=== PATIENT | male | born 1975 | race African-American/Black ===

== ENCOUNTER 2018-10-31 22:06 | Emergency (ER) | payer OTHER ==
[~2018-10-31] VITALS: Ht 185.4 cm; Wt 117.9 kg
--- NOTE | 2018-11-01 00:40 | PHYS DOC ---
Past Medical History Past Medical History: Asthma, CVA, Hypertension Past Surgical History: No Surgical History Alcohol Use: None Drug Use: Marijuana Adult General Chief Complaint Chief Complaint: LOWER EXTREMITY EDEMA HPI HPI Patient is a 43 year old male with one prior stroke and HTN who presents with one-day of increased pain and swelling of the right knee and distal thigh. He states this occurred abruptly without any trauma or injury to the area. He also reports a palpable mass in his posterior knee that is very tender to palpation. he states the pain is a 10/10 in severity. He denies any fever, nausea or vom iting. He admits to shortness of breath, night sweats, polydipsia, palpitations, and lightheadedness that have increased in severity and frequency in the past year. He is concerned there is something wrong with his heart and would like testing done for this. Review of Systems Review of Systems Constitutional: Denies fever or chills Eyes: Denies redness or eye pain HENT: Denies nasal congestion or sore throat Respiratory: Reports shortness of breath. Cardiovascular: Denies chest pain but reports palpitations and light headedness. GI: Denies abdominal pain, nausea, or vomiting : Denies dysuria or hematuria Musculoskeletal: Right knee and distal thigh pain and swelling. Integument: Denies rash or skin lesions Neurologic: Denies headache, focal weakness or sensory changes Complete systems were reviewed and found to be within normal limits, except as documented in this note. Current Medications Current Medications Current Medications Medications (Trade) Dose Ordered Sig/Marcus Start Time Stop Time Status Last Admin Dose Admin Acetaminophen/ Hydrocodone Bitart (Lortab 5/325) 1 tab 1X ONCE 11/01/18 02:00 11/01/18 02:03 DC 11/01/18 02:11 1 TAB Dexamethasone (Decadron) 10 mg 1X ONCE 11/01/18 02:00 11/01/18 02:03 DC 11/01/18 02:11 10 MG Ketorolac Tromethamine (Toradol 15mg Vial) 15 mg 1X ONCE 11/01/18 00:45 11/01/18 00:46 DC 11/01/18 01:06 15 MG Allergies Allergies Allergies Coded Allergies Type Severity Reaction Last Updated Verified No Known Drug Allergies 10/31/18 No Physical Exam Physical Exam Constitutional: Anxious 43 yo male in moderate distress. Eyes: PERRL, EOMI, conjunctiva normal, no discharge Neck: Normal range of motion, no tenderness, supple Cardiovascular: Heart rate normal, regular rhythm Lungs & Thorax: Bilateral breath sounds clear to auscultation, no wheezing Abdomen: Soft, no tenderness Skin: Warm, dry, no erythema, no rash Extremities: Right knee and distal thigh tenderness and swelling. posterior right knee fluid collection that is TTP. Neurologic: Alert and oriented X 3, normal motor function, normal sensory function, no focal deficits noted Psychologic: Affect normal, judgement normal, mood normal Current Patient Data Vital Signs Vital Signs Date Time Temp Pulse Resp B/P (MAP) Pulse Ox O2 Delivery O2 Flow Rate FiO2 11/01/18 01:28 69 16 159/79 (105) 97 Room Air 10/31/18 23:01 98.4 98.4 Lab Values Laboratory Tests Test 11/01/18 01:02 11/01/18 01:12 White Blood Count 11.6 x10^3/uL (4.0-11.0) H Red Blood Count 3.67 x10^6/uL (4.30-5.70) L Hemoglobin 11.9 g/dL (13.0-17.5) L Hematocrit 34.0 % (39.0-53.0) L Mean Corpuscular Volume 93 fL (79-100) Mean Corpuscular Hemoglobin 32 pg (25-35) Mean Corpuscular Hemoglobin Concent 35 g/dL (31-37) Red Cell Distribution Width 12.5 % (11.5-14.5) Platelet Count 219 x10^3/uL (140-400) Neutrophils (%) (Auto) 66 % (31-73) Lymphocytes (%) (Auto) 25 % (24-48) Monocytes (%) (Auto) 7 % (0-9) Eosinophils (%) (Auto) 1 % (0-3) Basophils (%) (Auto) 0 % (0-3) Neutrophils # (Auto) 7.7 x10^3uL (1.8-7.7) Lymphocytes # (Auto) 2.9 x10^3/uL (1.0-4.8) Monocytes # (Auto) 0.8 x10^3/uL (0.0-1.1) Eosinophils # (Auto) 0.1 x10^3/uL (0.0-0.7) Basophils # (Auto) 0.1 x10^3/uL (0.0-0.2) Prothrombin Time 14.3 SEC (11.7-14.0) H Prothrombin Time INR 1.1 (0.8-1.1) PTT 32 SEC (24-38) Sodium Level 141 mmol/L (136-145) Potassium Level 3.5 mmol/L (3.5-5.1) Chloride Level 105 mmol/L (98-107) Carbon Dioxide Level 30 mmol/L (21-32) Anion Gap 6 (6-14) Blood Urea Nitrogen 9 mg/dL (8-26) Creatinine 0.9 mg/dL (0.7-1.3) Estimated GFR (Cockcroft-Gault) 111.4 BUN/Creatinine Ratio 10 (6-20) Glucose Level 99 mg/dL (70-99) Calcium Level 9.3 mg/dL (8.5-10.1) Magnesium Level 2.0 mg/dL (1.8-2.4) Total Bilirubin 0.5 mg/dL (0.2-1.0) Aspartate Amino Transferase (AST) 20 U/L (15-37) Alanine Aminotransferase (ALT) 21 U/L (16-63) Alkaline Phosphatase 53 U/L (46-116) Creatine Kinase 119 U/L (39-308) Creatine Kinase MB (Mass) 0.8 ng/mL (0.0-3.6) Creatine Kinase MB Relative Index 0.7 % (0-4) Troponin I Quantitative < 0.017 ng/mL (0.000-0.055) LV-Jgx-A-Type Natriuretic Peptide 10 pg/mL (0-124) Total Protein 7.9 g/dL (6.4-8.2) Albumin 4.1 g/dL (3.4-5.0) Albumin/Globulin Ratio 1.1 (1.0-1.7) Lipase 192 U/L (73-393) Urine Collection Type Unknown Urine Color Yellow Urine Clarity Cloudy Urine pH 5.0 Urine Specific [place] 1.015 Urine Protein Negative mg/dL (NEG-TRACE) Urine Glucose (UA) Negative mg/dL (NEG) Urine Ketones (Stick) Negative mg/dL (NEG) Urine Blood Negative (NEG) Urine Nitrite Negative (NEG) Urine Bilirubin Negative (NEG) Urine Urobilinogen Dipstick 0.2 mg/dL (0.2 mg/dL) Urine Leukocyte Esterase Negative (NEG) Urine RBC 0 /HPF (0-2) Urine WBC Occ /HPF (0-4) Urine Squamous Epithelial Cells Few /LPF Urine Bacteria 0 /HPF (0-FEW) Urine Mucus Slight /LPF Laboratory Tests 11/01/18 01:02 Laboratory Tests 11/01/18 01:02 EKG EKG 11/01/2018 @00:51 shows NSR at [address] elevations. [] Radiology/Procedures Radiology/Procedures PROCEDURE: VENOUS LOWER EXTREMITY RIGHT RIGHT LOWER EXTREMITY ULTRASOUND WITH DOPPLER 10/31/2018 11:48 PM Clinical Information: Right knee swelling for 3 days with no known injury. Comparison: None. Technique: Multiple grayscale, color Doppler, and spectral Doppler sonographic images of the lower extremity venous structures were obtained. Findings: The right common femoral, femoral, and popliteal veins exhibit normal compression, respiratory phasicity, and augmentation. No intraluminal thrombi are identified. Color Doppler flow is demonstrated in the right posterior tibial veins. Greater saphenous vein is patent. There is a knee joint effusion. Impression: 1. No evidence of deep venous thrombosis. 2. Moderate knee joint effusion. Electronically signed by: Kelvin Randle MD (11/01/2018 1:02 AM) [facility] DICTATED and SIGNED BY: KELVIN RANDLE MD DATE: 11/01/18101 Course & Med Decision Making Course & Med Decision Making Patient is a 43-year-old male who presented right knee pain and swelling for 1 day. The patient is complaining of palpitations lightheadedness and several othe r systemic complaints. Ultrasound of the right knee demonstrated no deep venous thromboses, but did show an effusion. ECG was obtained and demonstrated normal sinus rhythm and no ST elevations. Patient was administered ketorolac for pain. Patient's right knee wrapped with margarita bandage for compression and given crutches. Patient stable for discharge with outpatient follow-up with PCP. Discussed findings and plan with patient and family, who acknowledge understanding and agreement. Dragon Disclaimer Dragon Disclaimer This electronic medical record was generated, in whole or in part, using a voice recognition dictation system. Departure Departure Impression: Primary Impression: Knee effusion, right Disposition: 01 HOME, SELF-CARE Condition: STABLE Referrals: NO PCP (PCP) CHRIS MASCORRO MD Patient Instructions: Crutch Use, [id number], Knee Effusion, Gmbe-hp-[id number] Scripts Hydrocodone/Apap 5-325 (NORCO 5-325 TABLET) 1 Each Tablet 0.5 TAB PO PRN Q6HRS PRN for PAIN, #6 TAB 0 Refills Prov: LUCAS MARTINEZ DO 11/01/18 Prednisone (PREDNISONE) 20 Mg Tablet 2 TAB PO DAILY, #8 TAB Prov: LUCAS MARTINEZ DO 11/01/18 LUCAS MARTINEZ DO Nov 01, 2018 00:40
[2018-11-01] MEDS ORDERED: KETOROLAC 15 MG/ML VIAL. IV ONE (00:45)
--- NOTE | 2018-11-01 01:05 | RAD ---
RIGHT LOWER EXTREMITY ULTRASOUND WITH DOPPLER 10/31/2018 11:48 PM Clinical Information: Right knee swelling for 3 days with no known injury. Comparison: None. Technique: Multiple grayscale, color Doppler, and spectral Doppler sonographic images of the lower extremity venous structures were obtained. Findings: The right common femoral, femoral, and popliteal veins exhibit normal compression, respiratory phasicity, and augmentation. No intraluminal thrombi are identified. Color Doppler flow is demonstrated in the right posterior tibial veins. Greater saphenous vein is patent. There is a knee joint effusion. Impression: 1. No evidence of deep venous thrombosis. 2. Moderate knee joint effusion. Electronically signed by: Mary Randle MD (11/01/2018 1:02 AM) [facility]
[2018-11-01 01:19] LABS: BASO # 0.1 x10^3/uL (0.0-0.2); BASO % 0 % (0-3); EOS # 0.1 x10^3/uL (0.0-0.7); EOS % 1 % (0-3); HEMOGLOBIN 11.9 g/dL (13.0-17.5); LYMPH # 2.9 x10^3/uL (1.0-4.8); LYMPH % 25 % (24-48); MEAN CORPUSCULAR HEMOGLOBIN 32 pg (25-35); MEAN CORPUSCULAR HGB CONC 35 g/dL (31-37); MEAN CORPUSCULAR VOLUME 93 fL (79-100); MONO # 0.8 x10^3/uL (0.0-1.1); MONO % 7 % (0-9); NEUT # 7.7 x10^3uL (1.8-7.7); NEUT % 66 % (31-73); PLATELET COUNT 219 x10^3/uL (140-400); RED BLOOD COUNT 3.67 x10^6/uL (4.30-5.70); RED CELL DISTRIBUTION WIDTH 12.5 % (11.5-14.5); WHITE BLOOD COUNT 11.6 x10^3/uL (4.0-11.0)
[2018-11-01 01:25] LABS: PROTHROMBIN TIME PATIENT 14.3 SEC (11.7-14.0)
[2018-11-01 01:25] LABS: BILIRUBIN,URINE NEGATIVE (NEG); CLARITY,URINE CLOUDY; COLOR,URINE YELLOW; NITRITE,URINE NEGATIVE (NEG); PROTEIN,URINE NEGATIVE (NEG-TRACE); UROBILINOGEN,URINE 0.2 mg/dL (0.2 mg/dL)
[2018-11-01 01:28] VITALS: BP 159/79
[2018-11-01 01:28] LABS: CALCIUM 9.3 mg/dL (8.5-10.1); CREATININE 0.9 mg/dL (0.7-1.3); GFR 111.4; POTASSIUM 3.5 mmol/L (3.5-5.1)
[2018-11-01 01:30] LABS: SQUAMOUS EPITHELIAL CELL,UR FEW /LPF
[2018-11-01 01:31] LABS: BACTERIA,URINE 0 /HPF (0-FEW); RBC,URINE 0 /HPF (0-2); WBC,URINE OCC /HPF (0-4)
[2018-11-01 01:33] LABS: ALBUMIN 4.1 g/dL (3.4-5.0); ALBUMIN/GLOBULIN RATIO 1.1 (1.0-1.7); TOTAL BILIRUBIN 0.5 mg/dL (0.2-1.0); TOTAL PROTEIN 7.9 g/dL (6.4-8.2)
[2018-11-01] MEDS ORDERED: HYDR-3164 PO (01:56)
[2018-11-01] MEDS ORDERED: PRED20TA PO (01:56)
[2018-11-01] MEDS ORDERED: DEXAMETHASONE 4 MG TABLET PO ONE (02:00)
[2018-11-01] MEDS ORDERED: HYDROcodone/APAP 5/325MG 1 TAB TABLET PO ONE (02:00)
--- NOTE | 2018-11-01 03:38 | RAD ---
Chest radiograph 11/01/2018 1:23 AM INDICATION: Dyspnea COMPARISON: None available TECHNIQUE: Frontal and lateral views of the chest are provided. FINDINGS: The cardiomediastinal silhouette is within normal limits. There are no pleural effusions. There is no pulmonary vascular congestion. There is no pneumothorax. The lungs are clear. No significant osseous abnormality is identified. IMPRESSION: No acute cardiopulmonary process. Electronically signed by: Mary Randle MD (11/01/2018 3:36 AM) [facility]
--- NOTE | 2018-11-01 09:51 | EKG ---
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
== END 2018-11-01 02:18 | disposition home or self-care (01) ==
LOC: ER 22:06
DX: M25.461 Effusion, right knee (principal); I10 Essential (primary) hypertension; J45.909 Unspecified asthma, uncomplicated; Z86.73 Personal history of transient ischemic attack (TIA), and cerebral infarction without residual deficits
CPT/HCPCS: 36415; 71046; 80053; 81001; 82553; 83690; 83735; 83880; 84484; 85025; 85610; 85730; 93005; 93971; 96374; 99285; J1885; J8540